=== PATIENT | female | born 1960 | race Caucasian/White ===

== ENCOUNTER → 2018-04-23 | Day surgery (SDC) | payer OTHER ==
[~2018-04-23] VITALS: Ht 149.9 cm; Wt 54.0 kg
[2018-04-23 09:22] VITALS: BP 132/72
[2018-04-23 12:57] VITALS: BP 106/65
== END | disposition home or self-care (01) ==
LOC: GI 08:46 → OR 12:30
PROVIDERS: Internal Medicine Gastroenterology
PROC: 0DBG8ZZ Excision of Left Large Intestine, Via Natural or Artificial Opening Endoscopic (ICD-10-PCS; principal; 2018-04-23 11:30)
PROC: 0DBF8ZZ Excision of Right Large Intestine, Via Natural or Artificial Opening Endoscopic (ICD-10-PCS; 2018-04-23 11:30)
DX: D12.4 Benign neoplasm of descending colon (principal); D12.2 Benign neoplasm of ascending colon; K64.8 Other hemorrhoids; K59.09 Other constipation; Z68.25 Body mass index [BMI] 25.0-25.9, adult
CPT/HCPCS: 45378; J1200; J1610; J2250; J2310; J3010; J3490